=== PATIENT | female | born 1990 | race Caucasian/White ===

== ENCOUNTER 2016-10-01 07:30 | Emergency (ER) | payer OTHER ==
[~2016-10-01 07:30] MED LIST: ACETAMINOPHEN PO; AUGMENTIN PO; FAMOTIDINE PO; HUMALOG100 U/ML SUBQ; LANTUS100 U/ML SQ
[2016-10-01] MEDS ORDERED: BENTYL PO (07:39)
[2016-10-01] MEDS ORDERED: KLONOPIN PO (07:39)
[2016-10-01] MEDS ORDERED: MOBIC PO (07:39)
== END 2016-10-01 08:27 | disposition home or self-care (01) ==
LOC: SED 07:30
DX: J02.9 Acute pharyngitis, unspecified (principal); Z88.0 Allergy status to penicillin; Z79.899 Other long term (current) drug therapy
CPT/HCPCS: 87651; 99283

== ENCOUNTER 2016-10-04 17:38 | Emergency (ER) | payer OTHER ==
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
[~2016-10-04 17:38] MED LIST changes: +BENTYL PO; +KLONOPIN PO; +MOBIC PO
== END 2016-10-04 19:49 | disposition home or self-care (01) ==
LOC: SED 17:38 → CED 17:38 → SED 18:06
DX: S09.90XA Unspecified injury of head, initial encounter (principal); S13.4XXA Sprain of ligaments of cervical spine, initial encounter; E10.9 Type 1 diabetes mellitus without complications; F41.9 Anxiety disorder, unspecified; Z88.0 Allergy status to penicillin; V89.2XXA Person injured in unspecified motor-vehicle accident, traffic, initial encounter; Y92.410 Unspecified street and highway as the place of occurrence of the external cause
CPT/HCPCS: 70450; 71020; 72125; 99284